=== PATIENT | male | born 1980 | race Caucasian/White ===

== ENCOUNTER 2025-07-17 18:54 | Emergency (ER) | payer MEDICAID, OTHER ==
[~2025-07-17] VITALS: Ht 177.8 cm; Wt 74.1 kg
[~2025-07-17 18:54] MED LIST: BUSP5TAB20 PO; DULO30CA62 PO; GABA-1216 PO; GABA-529 PO
[2025-07-17 19:01] VITALS: BP 172/105; PULSE 94; RESP 18; TEMP 98.1; O2SAT 98
[2025-07-17 19:39] LABS: PLATELET COUNT (AUTO) 246 K/uL (150-450); RED BLOOD CELL COUNT(AUTO) 3.79 MIL/uL (4.50-5.90); RED CELL DISTRIBUTION WIDTH 13.2 % (11.5-14.5); WHITE BLOOD COUNT (AUTO) 10.5 K/uL (4.5-11.0)
[2025-07-17 19:46] LABS: CALCIUM, TOTAL 8.0 mg/dL (8.8-10.5); CREATININE 1.15 mg/dL (0.60-1.30); GLOMERULAR FILTR. RATE CALC > 60 mL/min (>60); GLUCOSE,RANDOM 99 mg/dL (70-110); SODIUM SERUM 144 mmol/L (136-145); UREA NITROGEN, BLOOD 18 mg/dL (7-18)
[2025-07-17] MEDS: LURASIDONE HCL 40 MG TABLET PO ONE (21:35)
== END 2025-07-18 05:52 | disposition home or self-care (01) ==
LOC: EMS 18:56
DX: F31.9 Bipolar disorder, unspecified (principal); F41.9 Anxiety disorder, unspecified; I10 Essential (primary) hypertension; J45.909 Unspecified asthma, uncomplicated; F17.210 Nicotine dependence, cigarettes, uncomplicated; F12.90 Cannabis use, unspecified, uncomplicated; Z91.018 Allergy to other foods; Z90.89 Acquired absence of other organs; Z88.1 Allergy status to other antibiotic agents; Z79.899 Other long term (current) drug therapy; R10.31 Right lower quadrant pain
CPT/HCPCS: 99284; 80048; 83690; 85025; 36415; G0480